=== PATIENT | female | born 1945 | race Hispanic/Latino ===

== ENCOUNTER → 2019-10-04 | Outpatient (CLI) | payer MEDICARE ==
[~2019-10-04] MED LIST: IOPAMIDOL 370 MG/ML 200 ML INFUS..BTL INJ ONE; SODIUM CHLORIDE 0.9% 100 ML ONE
[2019-10-04 11:38] LABS: BLOOD UREA NITROGEN 15 mg/dL (7-26); BUN/CREATININE RATIO 17 (6-25); CREATININE, SERUM 0.88 mg/dL (0.57-1.11); EST GLOMERULAR FILTRATION RATE > 60 ML/MIN (60-)
--- NOTE | 2019-10-04 13:28 | Diagnostic Imaging Report ---
EXAMINATION: CT angiogram of the neck CLINICAL HISTORY: Syncope, posterior neck pain/distention COMPARISON STUDIES: None TECHNIQUE: Axial images were obtained from the thoracic inlet. Coronal and sagittal images reconstructed from the axial data. For optimization of of anatomic evaluation, multi-planar reconstructions, maximum intensity projections, and advanced 3D off-line post-processing was obtained and performed on a dedicated stand-alone workstation under the direct supervision of the interpreting physician. Intravenous contrast: 100 mL of Omnipaque 300. Dose modulation, iterative reconstruction, and/or weight based adjustment of the mA/kV was utilized to reduce the radiation dose to as low as reasonably achievable. FINDINGS: If present, stenosis of the carotid bulbs is measured based on NASCET criteria i.e area of maximum stenosis compared to the cervical ICA distal to the bulb. Aortic arch and major vessels: Patent. No abnormalities. Common carotid arteries: Right: Patent. No abnormalities. Left : Soft atherosclerotic plaque throughout extending to the carotid bifurcation with associated moderate stenoses. Carotid bulbs: Right: Calcified plaque in the right carotid bulb without associated significant stenosis (less than 50%). Left :Soft and calcified plaque results in mild stenoses (less than 50%). Internal carotid arteries: Right: Patent. No abnormalities. Left: Patent. No abnormalities. Vertebral arteries: Patent. No abnormalities. Incidentally noted the left vertebral artery taking off directly from the aortic arch, a normal variation of anatomy. Cervical spine: Moderately severe degenerative foraminal stenosis on the right at C5-C6 and moderately severe bilaterally at C6-C7 many of the right side. IMPRESSION: 1. Mild stenosis of the left carotid bulb (less than 50%). 2. Minimal stenosis of the right carotid bulb (about 10%). 3. Prominent atherosclerotic change in the left common carotid artery extending to the bifurcation, with moderate stenosis (50-69%). Signed by: Dr. Madison Sarkar M.D. on 10/04/2019 1:24 PM
== END ==
LOC: CT 10:39
PROVIDERS: ATTEND Internal Medicine Interventional Cardiology
DX: I65.23 Occlusion and stenosis of bilateral carotid arteries (principal); R55 Syncope and collapse
CPT/HCPCS: 36415; 70498; 82565; 84520; J7050; Q9967

== ENCOUNTER 2020-04-01 08:47 | Emergency (ER) | payer MEDICARE ==
[~2020-04-01] VITALS: Ht 160 cm; Wt 79.2 kg
--- OUTSIDE RECORDS SUMMARY | 2020-04-01 08:49 | XMS REPORT ---
Author Author [facility] t Organization [facility] Address [address] [place] [address] Phone Unavailable Care Team Providers Care Print Binding Worker Name Role Phone DANIELLA TRENT Attjason Unavailable Payers Payer Name Policy Type Policy Number Effective Date Expiration Date S ource Problems This patient has no known problems. Allergies, Adverse Reactions, Alerts Allergy Name Allergy Type Status Severity Reaction(s) Onset Date Inacti ve Date Treating Clinician Comments Source No Known Allergies DA Active U 2019-10-07 00:00:00 [facility] No Known Contrast Allergies DA Active U 2007-07-11 00:00: 00 [facility] No Known Drug Allergies DA Active U 2007-07-11 00:00:00 [facility] No Known Food Allergies DA Active U 2007-07-11 00:00:00 [facility] No Known Other Allergies DA Active U 2007-07-11 00:00:00 [facility] Medications This patient has no known medications. Procedures This patient has no known procedures. Results Test Description Test Time Test Comments Results Result Comments Source CTA NECK 2019-10-04 13:13:00 [facility] [address] [place], [place] [address] Patient Name: EMMY BECERRIL MR #: [id number] : 1945 Age/Sex: 74/F Req #: [id number] Adm Physician: Ordered by: DANIELLA TRENT MD Report #: [id number] Location: [place] Room/Bed: Procedure: [id number] CT/CTA NECK Exam Date: 10/04/19 Exam Time: 1200 REPORT STATUS: Signed EXAMINATION: CT angiogram of the neck CLINICAL HISTORY: Syncope, posterior neck pain/distention COMPARISON STUDIES: None TECHNIQUE: Axial images were obtained from the thoracic inlet. Coronal and sagittal images reconstructed from the axial data. For optimization of of anatomic evaluation, multi-planar reconstructions, maximum intensity projections, and advanced 3D off-line post-processing was obtained and performed on a dedicated stand-alone workstation under the direct supervision of the interpreting physician. Intravenous contrast: 100 mL of Omnipaque 300. Dose modulation, iterative reconstruction, and/or weight based adjustment of the mA/kV was utilized to reduce the radiation dose to as low as reasonably achievable. FINDINGS: If present, stenosis of the carotid bulbs is measured based on NASCET criteria i.e area of maximum stenosis compared to the cervical ICA distal to the bulb. Aortic arch and major vessels: Patent. No abnormalities. Common carotid arteries: Right: Patent. No abnormalities. Left : Soft atherosclerotic plaque throughout extending to the carotid bifurcation with associated moderate stenoses. Carotid bulbs: Right: Calcified plaque in the right carotid bulb without associated significant stenosis (less than 50%). Left :Soft and calcified plaque results in mild stenoses (less than 50%). Internal carotid arteries: Right: Patent. No abnormalities. Left: Patent. No abnormalities. Vertebral arteries: Patent. No abnormalities. Incidentally noted the left vertebral artery taking off directly from the aortic arch, a normal variation of anatomy. Cervical spine: Moderately severe degenerative foraminal stenosis on the right at C5-C6 and moderately severe bilaterally at C6-C7 many of the right side. IMPRESSION: 1. Mild stenosis of the left carotid bulb (less than 50%). 2. Minimal stenosis of the right carotid bulb (about 10%). 3. Prominent atherosclerotic change in the left common carotid artery extending to the bifurcation, with moderate stenosis (50-69%). Signed by: Dr. Zakia Sarkar M.D. on 10/04/2019 1:24 PM Dictated By: ZAKIA SARKAR MD [id number] Transcribed By: OLGA MURPHY on 10/04/19 1324 COPY TO: DANIELLA TRENT MD SCR MAMM BILATERAL VASILIY CAD DIGITAL 2019-04-10 15:33:09 - SCR MAMM BILATERAL VASILIY CAD DIGITALBILATERAL DIGITAL SCREENING MAMMOGRAM 3D/2D WITH CAD: 04/10/2019CLINICAL: Asymptomatic. Digital breast tomosynthesis was performed in addition to routine CC and MLO views. Current mammographic images were evaluated by either a [employer] M-Vu or a [employer] ImageChecker CAD (computer aided detection system). Comparison is made to exams dated 02/11/2018 mammogram, 09/01 mammogram, and 05/30/2014 mammogram - [facility]. The tissue of both breasts is predominantly fatty. There are benign calcifications in both breasts. No suspicious mass, architectural distortion, malignant type calcification, or lymph node abnormality detected. Breast architecture is stable compared to prior exams.IMPRESSION: BENIGNThere is no mammographic evidence of malignancy. Resume annual screening mammography in one year. Edi Christopher M.D. ss/penlizabeth:04/10/2019 15:33:09 Road Cutter: Ale QUINTERO, [facility] sent: BIRADS 1-2 Normal Mammogram BI-RADS: 2 Benign
[2020-04-01] MEDS ORDERED: LISINOPRIL-HCT1 EACH (08:59)
[2020-04-01] MEDS ORDERED: CLINDAMYCIN PHOS 600 MG/ 4 ML VIAL IM STA (09:31)
[2020-04-01] MEDS ORDERED: PREDNISONE 20 MG TAB PO ONE (09:40)
--- NOTE | 2020-04-01 09:40 | Emergency Department Note ---
History of Present Illnes History of Present Illness Chief Complaint: Skin Rash/Abscess inner rgt thigh History of Present Illness This is a 75 year old female. was doing well prior to this. then 3 days ago then inner rgt thigh abscess/pain/swelling Historian: Patient Arrival Mode: Car History limited by: condition of the patient (normal) Onset (how long ago): day(s) (3) Location: inner rgt thigh Quality: mild Radiation: non-radiation Severity: mild Onset quality: gradual Duration (how long): day(s) (3) Timing of current episode: constant Progression: unchanged Chronicity: new Context: recent illness, recent surgery, recent immobilization, recent travel, trauma/injury, new medications, hx of DVT/PE, non-compliance w/ medications Exacerbating factors: none Associated symptoms: denies other symptoms Treatments prior to arrival: none Past Medical/Family History Physician Review I have reviewed the patient's past medical and family history. Any updates have been documented here. Past Medical History Recent Fever: No Clinical Suspicion of Infectio: No New/Unexplained Change in Ment: No Past Medical History: Hypertension Past Surgical History: None Social History Smoking Cessation: Never Smoker Counseling Performed: No Alcohol Use: None Any Illegal Drug Use: No TB Exposure/Symptoms: No Physically hurt or threatened: No Family History Family history of heart diseas: Yes Other Any Pre-Existing Lines (PICC,: No Is patient up to date on immun: Yes Last Flu: none Last Pneumovax: none Review of Systems Review of Systems Constitutional: no symptoms EENTM: no symptoms Cardiovascular: no symptoms Respiratory: no symptoms Gastrointestinal: no symptoms Genitourinary: no symptoms Musculoskeletal: no symptoms Neurological: no symptoms Psychological: no symptoms Endocrine: no symptoms Hematological/Lymphatic: no symptoms Review of other systems All other systems reviewed and negative. Physical Exam Related Data Allergies: Coded Allergies: codeine (Verified Adverse Reaction, Intermediate, vomiting/dizzy, 04/01/20) Triage Vital Signs Vital Signs Date Time Temp Pulse Resp B/P (MAP) Pulse Ox O2 Delivery O2 Flow Rate FiO2 04/01/20 08:47 99.3 78 16 150/76 100 Vital signs reviewed: Yes Physical Exam CONSTITUTIONAL Constitutional: well-developed, well-nourished HENT HENT: normocephalic, atraumatic, oropharynx clear/moist, nose normal HENT L/R: left ext ear normal, right ext ear normal EYES Eyes: PERRL, conjunctivae normal NECK Neck: ROM normal PULMONARY Pulmonary: effort normal, breath sounds normal CARDIOVASCULAR Cardiovascular: regular rhythm, heart sounds normal, capillary refill normal, normal rate GASTROINTESTINAL Abdominal: soft, nontender, bowel sounds normal GENITOURINARY Genitourinary: exam deferred SKIN Skin: warm, dry, erythema (3cm diameter fluctuant erythematous maculopapular blanching rash) MUSCULOSKELETAL Musculoskeletal: ROM normal NEUROLOGICAL Neurological: alert, oriented x 3, no gross motor or sensory deficits PSYCHOLOGICAL Psychological: mood/affect normal, judgement normal Procedures Incision and Drain Emergent situation: No Type of anesthesia: local Risks and benefits discussed: Yes Verbal consent obtained: Yes Consent given by: patient Prepped and draped in sterile: No Two patient identifiers confir: name, date of Identity confirmed by: patient Procedure verified: Yes Site verified: yes Type: abscess Size: 3cm diameter Site: lower extremity (rgt upper inner thigh) Skin preparation: Betadine Anesthesia method: none Patient sedated: No Needle aspiration: Yes (using an 18 gauge needle) Drainage: serosanguinous (with some pus) Drainage amount: moderate (4ml) Packing used: none Patient tolerance: tolerated well Procedure attestation: I performed the procedure Additional comments pt preferred needle aspiration Critical Care Time Subsequent provider I assumed direction of critical care for this patient from another provider of my specialty. Assessment & Plan Assessment & Plan Final Impression: (1) CELLULITIS OF RIGHT LOWER LIMB (2) CUTANEOUS ABSCESS OF RIGHT LOWER LIMB Assessment & Plan rx bactrim and prednisone( to decrease erythema , swelling), warm soak Depart Disposition: HOME, SELF-CARE Last Vital Signs Date Time Temp Pulse Resp B/P (MAP) Pulse Ox O2 Delivery O2 Flow Rate FiO2 04/01/20 08:47 99.3 78 16 150/76 100 Home Meds Active Scripts Prednisone (PREDNISONE) 20 Mg Tab, 60 MG PO DAILY for 3 Days, #9 TAB PRN SWELLING, PAIN (START TOMORROW) Prov:TREMAINE MILES 04/01/20 Sulfamethoxazole/Trimethoprim (BACTRIM DS TABLET) 1 Each Tablet, 1 TAB PO Q12H for 14 Days, #28 TAB Prov:TREMAINE MILES 04/01/20 Reported Medications Lisinopril/Hydrochlorothiazide (LISINOPRIL-HCTZ 20-12.5 MG TAB) 1 Each Tablet, DAILY 04/01/20 Medications in the ED Clindamycin Phosphate 600 mg ONCE STAT IM Last administered on 04/01/20at 09:25; Admin Dose 600 MG; Start 04/01/20 at 09:31; Stop 04/01/20 at 09:32 Prednisone 60 mg ONCE ONCE PO Last administered on 04/01/20at 09:25; Admin Dose 60 MG; Start 04/01/20 at 09:40; Stop 04/01/20 at 09:41 TREMAINE MILES Apr 01, 2020 09:40
[2020-04-01] MEDS ORDERED: BACTRIM DS TAB1 EACH PO (09:43)
[2020-04-01] MEDS ORDERED: PREDNISONE20 MG PO (09:43)
--- NOTE | 2020-04-01 09:45 | NUR ---
Photolithographer called for labs to be taken across the street.
--- NOTE | 2020-04-01 09:50 | NUR ---
wound cx sent to the lab across the street with the advisory software engineer
[2020-04-01 10:06] VITALS: BP 140/73
== END 2020-04-01 09:56 | disposition home or self-care (01) ==
LOC: FSED 08:47
DX: L02.415 Cutaneous abscess of right lower limb (principal); L03.115 Cellulitis of right lower limb; I10 Essential (primary) hypertension
CPT/HCPCS: 10060; 87071; 87205; 96372; 99283; J7512